=== PATIENT | female | born 1995 | race African-American/Black ===

== ENCOUNTER 2018-03-04 10:33 | Inpatient (IN) ==
[2018-03-04] MEDS ORDERED: CITRIC ACID/SODIUM CITRATE 30 ML UDCUP PO ONE (12:14)
[2018-03-04] MEDS: LACTATED RINGERS 1,000 ML IV SCH ×2 (12:15→13:19)
[2018-03-04] MEDS ORDERED: OXYTOCIN 10 UNIT/ML VIAL IM ONE (12:17)
[2018-03-04] MEDS ORDERED: OXYTOCIN/LR 30 UNIT/1,000 ML BAG IV ONE (12:17)
[2018-03-04 12:53] LABS: Basophils % 0.2 % (0.0-0.8); Eosinophils % 0.3 % (0.00-10.9); Hematocrit 29.4 VOL% (35.7-47.0); Hemoglobin 9.7 GM/DL (12.0-16.0); Immature Granulocytes % 0.8 %; Immature Granulocytes Absolute 0.08 #; Lymphocytes # 2.2 10*3/uL (1.4-4.0); Lymphocytes % 22.1 % (21.3-54.2); Mean Corpuscular Hemoglobin 30 PG (27-34); Mean Corpuscular Volume 91.9 FL (87-102); Mean Platelet Volume 11.1 FL (9.6-12.0); Monocytes # 0.8 10*3/uL (0.11-0.8); Monocytes % 7.8 % (1.7-12.7); Neutrophils # 6.8 10*3/uL (1.4-7.4); Neutrophils % 68.8 % (38.7-73.9); Platelet Count 282 T/CUMM (130-400); Red Cell Distribution Width 13.9 % (9.3-17.3)
[2018-03-04 12:58] LABS: Apearance,Urine CLEAR (Clear); Bilirubin,Urine Negative (Negative); Blood, Urine Negative (Negative); Glucose,Urine (UA) Negative (Negative); Ketones,Urine Negative (Negative); Mucus,Urine Occasional /LPF (Occasional); Nitrite,Urine Negative (Negative); Protein,Urine Negative; RBC,Urine 1 /HPF (0-4); Squamous Epithelial Cell,Urine Occasional /HPF (0-10); Urine Color Yellow (Yellow); Urine Specific Gravity 1.004 (1.001-1.035); Urine Urobilinogen < 2.0 EU/DL (0.2-1.0); WBC,Urine <1 /HPF (0-6)
[2018-03-04 13:03] LABS: INR 0.9; PT Patient Result 9.9 SECS; Partial Thromboplastin Time 23.8 SECS (0-40)
[2018-03-04] MEDS ORDERED: FAMOTIDINE 20 MG/2 ML VIAL IV ONE (13:15)
[2018-03-04] MEDS ORDERED: BUPIVACAINE SPINAL 0.75% 2 ML AMP SPINAL ONE (13:26)
[2018-03-04 13:30] LABS: Albumin 2.7 G/DL (3.4-5.0); Calcium 8.4 MG/DL (8.5-10.1); Osmolality,Calculated 275.3 MOS/KG (273-304); Potassium 3.6 MMOL/L (3.5-5.1); Total Protein 6.5 G/DL (6.4-8.3)
[2018-03-04] MEDS ORDERED: PHENYLEPHRINE 1 MG/10 ML SYRINGE IV ONE (14:39)
[2018-03-04] MEDS ORDERED: fentaNYL 100 MCG/2 ML VIAL ONE (14:40)
[2018-03-04] MEDS ORDERED: METOCLOPRAMIDE 10 MG/2 ML VIAL ONE (14:40)
[2018-03-04] MEDS ORDERED: MORPHINE 10 MG/10 ML VIAL ONE (14:40)
[2018-03-04] MEDS ORDERED: ONDANSETRON 4 MG/2 ML VIAL ONE (14:40)
[2018-03-04] MEDS ORDERED: IBUPROFEN 800 MG TABLET PO PRN (14:57)
[2018-03-04] MEDS ORDERED: ONDANSETRON 4 MG/2 ML VIAL IV PRN ×2 (14:57)
[2018-03-04] MEDS ORDERED: OXYTOCIN/LR 20 UNIT/1,000 ML BAG IV ONE (14:57)
[2018-03-04] MEDS ORDERED: diphenhydrAMINE 50 MG/1 ML VIAL IV PRN (14:57)
[2018-03-04] MEDS ORDERED: RHO(D) IMMUNE GLOBULIN 300 MCG SYRINGE IM ONE (14:57)
[2018-03-04] MEDS ORDERED: SIMETHICONE CHEW 80 MG TABLET PO PRN (14:57)
[2018-03-04] MEDS ORDERED: HYDROmorphone 2 MG/1 ML VIAL IV PRN (14:57)
[2018-03-04] MEDS ORDERED: MAGNESIUM HYDROXIDE SUSP 30 ML UDCUP PO PRN (14:57)
[2018-03-04] MEDS ORDERED: hydrOXYzine HCL 25 MG/1 ML VIAL IM PRN (14:57)
[2018-03-04] MEDS ORDERED: ACETAMINOPHEN 325 MG TABLET PO PRN (14:57)
[2018-03-04] MEDS ORDERED: LACTATED RINGERS 1,000 ML IV SCH (15:00)
[2018-03-04] MEDS ORDERED: SODIUM CHLORIDE 0.9% 1,000 ML IV SCH (15:00)
[2018-03-04] MEDS: DOCUSATE SODIUM 100 MG CAPSULE PO SCH (20:37)
[2018-03-04] MEDS: ceFAZolin 1,000 MG in SYRINGE 1 EACH IV SCH (22:04)
[2018-03-05] MEDS: LACTATED RINGERS 1,000 ML IV SCH ×2 (00:04→00:05)
[2018-03-05 05:29] LABS: Basophils % 0.2 % (0.0-0.8); Eosinophils % 0.1 % (0.00-10.9); Hematocrit 26.2 VOL% (35.7-47.0); Immature Granulocytes % 0.6 %; Immature Granulocytes Absolute 0.07 #; Lymphocytes # 1.5 10*3/uL (1.4-4.0); Mean Corpuscular HGB Conc 34.4 GM/DL (32-36); Mean Corpuscular Hemoglobin 31 PG (27-34); Mean Platelet Volume 10.4 FL (9.6-12.0); Monocytes # 0.9 10*3/uL (0.11-0.8); Monocytes % 6.8 % (1.7-12.7); Neutrophils # 10.1 10*3/uL (1.4-7.4); Neutrophils % 80.3 % (38.7-73.9); Platelet Count 219 T/CUMM (130-400); Red Blood Count 2.91 MC/CUMM (3.8-5.5); Red Cell Distribution Width 13.7 % (9.3-17.3); White Blood Count 12.6 T/CUMM (4-12)
[2018-03-05] MEDS: ceFAZolin 1,000 MG in SYRINGE 1 EACH IV SCH (05:39)
[2018-03-05] MEDS: MULTIVITAMIN (PRENATAL) TABLET PO SCH (10:21)
[2018-03-05] MEDS: FERROUS SULFATE 325 MG TABLET PO SCH ×2 (10:21→20:36)
[2018-03-05] MEDS: DOCUSATE SODIUM 100 MG CAPSULE PO SCH ×2 (10:21→20:36)
[2018-03-06 07:46] VITALS: BP 140/78
[2018-03-06] MEDS: DOCUSATE SODIUM 100 MG CAPSULE PO SCH (08:36)
[2018-03-06] MEDS: FERROUS SULFATE 325 MG TABLET PO SCH (08:36)
[2018-03-06] MEDS: MULTIVITAMIN (PRENATAL) TABLET PO SCH (08:36)
== END 2018-03-06 17:45 | disposition home or self-care (01) | DRG 540 ==
LOC: N.LDOUT 10:33 → N.LD 12:14 → N.OB 20:13
PROVIDERS: ADMIT Obstetrics & Gynecology; ATTEND Obstetrics & Gynecology
PROC: LDCSECT (ICD-10-PCS; 2018-03-04 13:30)

== ENCOUNTER 2019-02-28 00:20 | Inpatient (IN) ==
[2019-02-28] MEDS ORDERED: FAMOTIDINE 20 MG/2 ML VIAL IV ONE (00:41)
[2019-02-28] MEDS ORDERED: CITRIC ACID/SODIUM CITRATE 30 ML UDCUP PO ONE (00:41)
[2019-02-28] MEDS ORDERED: hydrALAZINE 20 MG/1 ML VIAL ONE (00:45)
[2019-02-28] MEDS ORDERED: hydrALAZINE 20 MG/1 ML VIAL IV ONE ×2 (00:45→01:05)
[2019-02-28] MEDS ORDERED: OXYTOCIN/LR 30 UNIT/1,000 ML BAG IV ONE (00:56)
[2019-02-28 00:57] LABS: Basophils % 0.2 % (0.0-0.8); Eosinophils % 0.3 % (0.00-10.9); Hematocrit 33.1 VOL% (35.7-47.0); Hemoglobin 10.3 GM/DL (12.0-16.0); Immature Granulocytes % 0.5 %; Immature Granulocytes Absolute 0.04 #; Lymphocytes # 2.4 10*3/uL (1.4-4.0); Lymphocytes % 27.8 % (21.3-54.2); Mean Corpuscular HGB Conc 31.1 GM/DL (32-36); Mean Corpuscular Volume 89.7 FL (87-102); Mean Platelet Volume 11.6 FL (9.6-12.0); Monocytes % 7.4 % (1.7-12.7); Neutrophils % 63.8 % (38.7-73.9); Platelet Count 307 T/CUMM (130-400); Red Blood Count 3.69 MC/CUMM (3.8-5.5); Red Cell Distribution Width 13.5 % (9.3-17.3); White Blood Count 8.7 T/CUMM (4-12)
[2019-02-28] MEDS ORDERED: ceFAZolin 3,000 MG in SYRINGE 1 EACH IV ONE (01:00)
[2019-02-28] MEDS ORDERED: LACTATED RINGERS 1,000 ML IV SCH ×2 (01:00→03:00)
[2019-02-28 01:08] LABS: INR 0.9; PT Patient Result 9.7 SECS; Partial Thromboplastin Time 23.9 SECS (0-40)
[2019-02-28 01:16] LABS: Albumin 3.2 G/DL (3.4-5.0); Bilirubin,Total 0.6 MG/DL (0.2-1.0); Calcium 9.1 MG/DL (8.5-10.1); Osmolality,Calculated 277.3 MOS/KG (273-304); Total Protein 7.5 G/DL (6.4-8.3)
[2019-02-28] MEDS ORDERED: OXYTOCIN 10 UNIT/ML VIAL ONE (01:16)
[2019-02-28] MEDS ORDERED: OXYTOCIN 10 UNIT/ML VIAL IM ONE (01:17)
[2019-02-28 01:22] LABS: Apearance,Urine CLEAR (Clear); Bilirubin,Urine Negative (Negative); Blood, Urine Negative (Negative); Glucose,Urine (UA) Negative (Negative); Ketones,Urine 5 mg/dL (Negative); Nitrite,Urine Negative (Negative); Protein,Urine 30 MG/DL; RBC,Urine <1 /HPF (0-4); Squamous Epithelial Cell,Urine Occasional /HPF (0-10); Urine Color Straw (Yellow); Urine Specific Gravity 1.003 (1.001-1.035); Urine Urobilinogen < 2.0 EU/DL (0.2-1.0); WBC,Urine <1 /HPF (0-6)
[2019-02-28 01:42] LABS: Barbiturates Screen,Urine Negative (Negative); Benzodiazepines Screen,Urine Negative (Negative); Cannabinoid Screen,Urine Negative (Negative); Opiate Screen,Urine Negative (Negative); Phencyclidine Screen,Urine Negative (Negative)
[2019-02-28] MEDS ORDERED: MAGNESIUM SULF RIDER 4 GM in PREMIX 1 EACH IV ONE (02:04)
[2019-02-28 02:07] LABS: Cord Arterial Blood HCO3 17.8 MMOL/L
[2019-02-28 02:11] LABS: Cord Venous Blood HCO3 19.3 MMOL/L; Cord Venous Blood PCO2 49.8 MMHG
[2019-02-28 02:13] LABS: Cord Venous Blood PO2 17.4
[2019-02-28] MEDS ORDERED: MAGNESIUM SULF DRIP 40 GM/1,000 ML ML IV SCH (02:30)
[2019-02-28] MEDS ORDERED: PHENYLEPHRINE 1 MG/10 ML SYRINGE IV ONE (02:35)
[2019-02-28] MEDS ORDERED: fentaNYL 100 MCG/2 ML VIAL ONE (02:36)
[2019-02-28] MEDS ORDERED: MORPHINE 10 MG/10 ML VIAL ONE (02:38)
[2019-02-28] MEDS ORDERED: ACETAMINOPHEN 325 MG TABLET PO PRN (02:47)
[2019-02-28] MEDS ORDERED: IBUPROFEN 800 MG TABLET PO PRN (02:47)
[2019-02-28] MEDS ORDERED: OXYTOCIN/LR 20 UNIT/1,000 ML BAG IV ONE ×2 (02:47→11:14)
[2019-02-28] MEDS ORDERED: ONDANSETRON 4 MG/2 ML VIAL IV PRN (02:47)
[2019-02-28] MEDS ORDERED: RHO(D) IMMUNE GLOBULIN 300 MCG SYRINGE IM ONE (02:47)
[2019-02-28 03:11] LABS: HIV Antigen/Antibody Result Nonreactive (Nonreactive); Hepatitis B Surface Ab Result Negative
[2019-02-28] MEDS ORDERED: diphenhydrAMINE 50 MG/1 ML VIAL IV ONE (03:15)
[2019-02-28 07:49] LABS: Basophils % 0.1 % (0.0-0.8); Hematocrit 31.1 VOL% (35.7-47.0); Hemoglobin 9.6 GM/DL (12.0-16.0); Immature Granulocytes % 0.8 %; Immature Granulocytes Absolute 0.11 #; Lymphocytes # 1.5 10*3/uL (1.4-4.0); Lymphocytes % 10.1 % (21.3-54.2); Mean Corpuscular HGB Conc 30.9 GM/DL (32-36); Mean Corpuscular Volume 90.4 FL (87-102); Mean Platelet Volume 11.1 FL (9.6-12.0); Monocytes % 5.5 % (1.7-12.7); Neutrophils % 83.5 % (38.7-73.9); Platelet Count 270 T/CUMM (130-400); Red Blood Count 3.44 MC/CUMM (3.8-5.5); Red Cell Distribution Width 13.7 % (9.3-17.3); White Blood Count 14.5 T/CUMM (4-12)
[2019-02-28] MEDS: DOCUSATE SODIUM 100 MG CAPSULE PO SCH ×2 (08:57→21:00)
[2019-02-28] MEDS: MULTIVITAMIN (PRENATAL) TABLET PO SCH (08:57)
[2019-02-28] MEDS: ceFAZolin 1,000 MG in SYRINGE 1 EACH IV SCH ×2 (08:57→17:03)
[2019-02-28] MEDS ORDERED: diphenhydrAMINE 50 MG/1 ML VIAL IV PRN (12:39)
[2019-02-28] MEDS ORDERED: SODIUM CHLORIDE 0.9% 100 ML IV ONE (16:59)
[2019-03-01] MEDS: MULTIVITAMIN (PRENATAL) TABLET PO SCH (09:19)
[2019-03-01] MEDS: DOCUSATE SODIUM 100 MG CAPSULE PO SCH ×2 (09:19→21:14)
[2019-03-01] MEDS: MAGNESIUM HYDROXIDE SUSP 30 ML UDCUP PO PRN (09:35)
[2019-03-01] MEDS: SIMETHICONE CHEW 80 MG TABLET PO PRN ×2 (09:35→16:09)
[2019-03-01] MEDS ORDERED: METOCLOPRAMIDE 10 MG/2 ML VIAL IV SCH (16:00)
[2019-03-01] MEDS ORDERED: BISACODYL 10 MG SUPP RECTAL PRN (21:16)
[2019-03-02] MEDS ORDERED: METOCLOPRAMIDE 10 MG/2 ML VIAL IV SCH
[2019-03-02] MEDS: DOCUSATE SODIUM 100 MG CAPSULE PO SCH ×2 (08:55→20:51)
[2019-03-02] MEDS: METOCLOPRAMIDE 10 MG TABLET PO SCH ×2 (08:55→16:39)
[2019-03-02] MEDS: MULTIVITAMIN (PRENATAL) TABLET PO SCH (08:57)
[2019-03-02] MEDS: SIMETHICONE CHEW 80 MG TABLET PO PRN (08:57)
[2019-03-02] MEDS: MAGNESIUM HYDROXIDE SUSP 30 ML UDCUP PO PRN (08:57)
[2019-03-03] MEDS: METOCLOPRAMIDE 10 MG TABLET PO SCH (00:59)
[2019-03-03] MEDS: MULTIVITAMIN (PRENATAL) TABLET PO SCH (08:04)
[2019-03-03] MEDS: SIMETHICONE CHEW 80 MG TABLET PO PRN (08:04)
[2019-03-03] MEDS: DOCUSATE SODIUM 100 MG CAPSULE PO SCH (08:04)
[2019-03-03 09:15] VITALS: BP 147/96
[2019-03-03] MEDS ORDERED: DIPH/TET/ACEL PERT BOOSTER VACCINE 0.5 ML VIAL IM ONE (11:31)
== END 2019-03-03 13:00 | disposition home or self-care (01) | DRG 540 ==
LOC: N.LDOUT 00:20 → N.LD 00:24 → N.OB 03-01 09:30
PROVIDERS: ADMIT Obstetrics & Gynecology; ATTEND Obstetrics & Gynecology
PROC: LDCSECT (ICD-10-PCS; 2019-02-28 01:27)

== ENCOUNTER 2022-12-05 09:54 | Inpatient (IN) ==
[2022-12-05] MEDS ORDERED: NIFEdipine 10 MG CAPSULE PO ONE ×3 (10:54→16:03)
[2022-12-05 11:23] LABS: Basophils % 0.2 % (0.0-0.8); Eosinophils % 0.2 % (0.00-10.9); Hematocrit 32.7 VOL% (35.7-47.0); Hemoglobin 10.8 GM/DL (12.0-16.0); Immature Granulocytes % 0.4 %; Immature Granulocytes Absolute 0.04 #; Lymphocytes # 1.7 10*3/uL (1.4-4.0); Mean Corpuscular Volume 92.9 FL (87-102); Monocytes # 0.7 10*3/uL (0.11-0.8); Neutrophils % 72.2 % (38.7-73.9); Platelet Count 307 T/CUMM (130-400); Red Blood Count 3.52 MC/CUMM (3.8-5.5); White Blood Count 8.98 T/CUMM (4-12)
[2022-12-05 11:37] LABS: INR 0.9; PT Patient Result 10.3 SECS (10.1-12.1); Partial Thromboplastin Time 23.9 SECS (23.7-32.9)
[2022-12-05 11:46] LABS: Albumin 2.9 G/DL (3.4-5.0); Bilirubin,Direct 0.14 MG/DL (0.0-0.20); Bilirubin,Total 0.7 MG/DL (0.20-1.00); Osmolality,Calculated 272.5 MOS/KG (273-304); Potassium 3.4 MMOL/L (3.5-5.1); Total Protein 7.1 G/DL (6.4-8.2); Uric Acid 3.4 MG/DL (2.6-6.0)
[2022-12-05] MEDS ORDERED: ONDANSETRON 4 MG/2 ML VIAL IV ONE (11:47)
[2022-12-05 12:12] LABS: Bacteria,Urine Occasional /HPF (Few); Mucus,Urine Many /LPF (Occasional); RBC,Urine 1 /HPF (0-4); Squamous Epithelial Cell,Urine Occasional /HPF (0-10)
[2022-12-05 12:13] LABS: Bilirubin,Urine Small mg/dL (Negative); Blood, Urine Negative (Negative); Glucose,Urine (UA) Negative (Negative); Ketones,Urine 80 mg/dL (Negative); Nitrite,Urine Positive (Negative); Protein,Urine 30 mg/dL (Negative); Protein/Creatinine Ratio,Urine 0.2 RATIO; Urine Appearance Clear (Clear); Urine Color Amber (Yellow); Urine Specific Gravity > 1.030 (1.001-1.035)
[2022-12-05] MEDS: LACTATED RINGERS 1,000 ML IV SCH (12:44)
[2022-12-05 16:32] LABS: Barbiturates Screen,Urine Negative (Negative); Benzodiazepines Screen,Urine Negative (Negative); Cannabinoid Screen,Urine Negative (Negative); Opiate Screen,Urine Negative (Negative); Phencyclidine Screen,Urine Negative (Negative)
[2022-12-05] MEDS ORDERED: CARBOPROST TROMETHAMINE 250 MCG/ML AMP IM PRN (17:02)
[2022-12-05] MEDS ORDERED: METHYLERGONOVINE 0.2 MG/1 ML AMP IM PRN (17:02)
[2022-12-05] MEDS ORDERED: OXYTOCIN/LR 20 UNIT/1,000 ML BAG IV ONE (17:02)
[2022-12-05] MEDS ORDERED: TRANEXAMIC ACID 1,000 MG in SODIUM CHLORIDE 0.9% 100 ML IV PRN (17:02)
[2022-12-05] MEDS ORDERED: miSOPROStoL 200 MCG TABLET RECTAL PRN (17:02)
[2022-12-06] MEDS ORDERED: ONDANSETRON 4 MG/2 ML VIAL IV PRN ×2 (04:30→10:32)
[2022-12-06] MEDS ORDERED: FAMOTIDINE 20 MG/2 ML VIAL IV ONE (05:30)
[2022-12-06] MEDS ORDERED: ceFAZolin 3,000 MG in SYRINGE 1 EACH IV ONE (05:30)
[2022-12-06] MEDS ORDERED: CITRIC ACID/SODIUM CITRATE 30 ML UDCUP PO ONE (05:30)
[2022-12-06] MEDS ORDERED: OXYTOCIN 10 UNIT/ML VIAL IM ONE (07:10)
[2022-12-06] MEDS ORDERED: OXYTOCIN/LR 30 UNIT/1,000 ML BAG IV ONE (07:12)
[2022-12-06] MEDS ORDERED: ONDANSETRON 4 MG/2 ML VIAL ONE (07:16)
[2022-12-06] MEDS ORDERED: buprenorphine HCL 0.3 MG/ML VIAL ONE (07:17)
[2022-12-06] MEDS: LACTATED RINGERS 1,000 ML IV SCH (07:30)
[2022-12-06] MEDS ORDERED: SODIUM CHLORIDE 0.9% 0 ML IV ONE (08:56)
[2022-12-06] MEDS ORDERED: TRANEXAMIC ACID 1,000 MG/10 ML VIAL ONE (08:56)
[2022-12-06] MEDS ORDERED: miSOPROStoL 200 MCG TABLET ONE (08:56)
[2022-12-06] MEDS ORDERED: METHYLERGONOVINE 0.2 MG/1 ML AMP ONE (08:57)
[2022-12-06] MEDS ORDERED: CARBOPROST TROMETHAMINE 250 MCG/ML AMP IM ONE (08:57)
[2022-12-06] MEDS ORDERED: LIDOCAINE 2% 5 ML VIAL ONE (09:29)
[2022-12-06] MEDS ORDERED: propofoL 200 MG/20 ML VIAL IV ONE (09:29)
[2022-12-06] MEDS ORDERED: MIDAZOLAM 2 MG/2 ML VIAL ONE (09:29)
[2022-12-06] MEDS ORDERED: fentaNYL 100 MCG/2 ML VIAL ONE (09:29)
[2022-12-06] MEDS ORDERED: KETOROLAC 30 MG/1 ML VIAL ONE (09:57)
[2022-12-06] MEDS ORDERED: ACETAMINOPHEN INJ 1,000 MG/100 ML VIAL IV ONE (09:57)
[2022-12-06] MEDS ORDERED: DEXAMETHASONE 4 MG/1 ML VIAL ONE (09:57)
[2022-12-06] MEDS ORDERED: LACTATED RINGERS 1,000 ML IV ONE (10:02)
[2022-12-06] MEDS ORDERED: SEVOFLURANE 1 UNIT/15 MINUTE INH ONE ×2 (10:02→10:27)
[2022-12-06 10:11] LABS: Cord Arterial Blood HCO3 19.8 MMOL/L
[2022-12-06 10:13] LABS: Cord Venous Blood HCO3 20.2 MMOL/L; Cord Venous Blood PCO2 61.6 MMHG; Cord Venous Blood PO2 25.4
[2022-12-06] MEDS ORDERED: SUCCINYLCHOLINE 200 MG/10 ML VIAL ONE (10:14)
[2022-12-06 10:24] LABS: Bacteria,Urine Occasional /HPF (Few); Bilirubin,Urine Small mg/dL (Negative); Blood, Urine Negative (Negative); Glucose,Urine (UA) Negative (Negative); Ketones,Urine 80 mg/dL (Negative); Mucus,Urine Occasional /LPF (Occasional); Nitrite,Urine Negative (Negative); Protein,Urine 30 mg/dL (Negative); RBC,Urine <1 /HPF (0-4); Urine Appearance Clear (Clear); Urine Color Amber (Yellow); Urine Specific Gravity > 1.030 (1.001-1.035)
[2022-12-06] MEDS ORDERED: OXYTOCIN/LR 20 UNIT/1,000 ML BAG IV ONE (10:32)
[2022-12-06] MEDS ORDERED: RHO(D) IMMUNE GLOBULIN 300 MCG SYRINGE IM ONE (10:32)
[2022-12-06] MEDS ORDERED: ACETAMINOPHEN 325 MG TABLET PO PRN (10:32)
[2022-12-06] MEDS ORDERED: LACTATED RINGERS 1,000 ML IV SCH (11:00)
[2022-12-06] MEDS: HYDROmorphone 1 MG/1 ML SYRINGE IV PRN ×2 (11:18→13:19)
[2022-12-06] MEDS ORDERED: NIFEdipine 10 MG CAPSULE PO ONE (12:33)
[2022-12-06] MEDS: KETOROLAC 30 MG/1 ML VIAL IV SCH ×2 (15:56→21:49)
[2022-12-06 17:58] LABS: Basophils % 0.1 % (0.0-0.8); Hematocrit 35.2 VOL% (35.7-47.0); Hemoglobin 11.8 GM/DL (12.0-16.0); Immature Granulocytes % 0.5 %; Immature Granulocytes Absolute 0.09 #; Lymphocytes # 0.9 10*3/uL (1.4-4.0); Lymphocytes % 5.3 % (21.3-54.2); Mean Corpuscular HGB Conc 33.5 GM/DL (32-36); Mean Corpuscular Volume 91.4 FL (87-102); Mean Platelet Volume 10.3 FL (9.6-12.0); Monocytes # 0.3 10*3/uL (0.11-0.8); Monocytes % 1.9 % (1.7-12.7); Neutrophils % 92.2 % (38.7-73.9); Platelet Count 299 T/CUMM (130-400); Red Blood Count 3.85 MC/CUMM (3.8-5.5); Red Cell Distribution Width 12.7 % (9.3-17.3); White Blood Count 16.42 T/CUMM (4-12)
[2022-12-06] MEDS: ACETAMINOPHEN 500 MG TABLET PO SCH ×2 (18:25→21:49)
[2022-12-06 21:13] LABS: Lymphocytes 3 % (20-55); Platelet Estimate Normal; Total Cells Counted 100
[2022-12-06] MEDS: DOCUSATE SODIUM 100 MG CAPSULE PO SCH (21:42)
[2022-12-06] MEDS: POTASSIUM CHLORIDE 20 MEQ TABLET PO PRN ×2 (21:42→23:47)
[2022-12-07] MEDS: POTASSIUM CHLORIDE 20 MEQ TABLET PO PRN (01:46)
[2022-12-07] MEDS: ACETAMINOPHEN 500 MG TABLET PO SCH (04:54)
[2022-12-07] MEDS: KETOROLAC 30 MG/1 ML VIAL IV SCH (04:59)
[2022-12-07 07:51] LABS: Basophils % 0.1 % (0.0-0.8); Hematocrit 31.2 VOL% (35.7-47.0); Hemoglobin 10.7 GM/DL (12.0-16.0); Immature Granulocytes % 0.5 %; Immature Granulocytes Absolute 0.08 #; Lymphocytes % 13.1 % (21.3-54.2); Mean Corpuscular HGB Conc 34.3 GM/DL (32-36); Mean Corpuscular Volume 92.3 FL (87-102); Mean Platelet Volume 10.4 FL (9.6-12.0); Monocytes # 1.4 10*3/uL (0.11-0.8); Neutrophils % 77.3 % (38.7-73.9); Platelet Count 287 T/CUMM (130-400); Red Blood Count 3.38 MC/CUMM (3.8-5.5); Red Cell Distribution Width 12.7 % (9.3-17.3); White Blood Count 15.06 T/CUMM (4-12)
[2022-12-07] MEDS ORDERED: traZODone 50 MG TABLET PO PRN (08:19)
[2022-12-07] MEDS: MAGNESIUM HYDROXIDE SUSP 30 ML UDCUP PO PRN ×2 (08:29→21:48)
[2022-12-07] MEDS: DOCUSATE SODIUM 100 MG CAPSULE PO SCH ×2 (08:30→21:48)
[2022-12-07] MEDS: SIMETHICONE CHEW 80 MG TABLET PO PRN ×2 (08:31→21:48)
[2022-12-07] MEDS: MULTIVITAMIN (PRENATAL) TABLET PO SCH (08:31)
[2022-12-07] MEDS: SERTRALINE 50 MG TABLET PO SCH (08:31)
[2022-12-07] MEDS ORDERED: SERTRALINE 50 MG TABLET PO SCH (09:00)
[2022-12-08] MEDS: DOCUSATE SODIUM 100 MG CAPSULE PO SCH ×2 (08:45→21:13)
[2022-12-08] MEDS: MULTIVITAMIN (PRENATAL) TABLET PO SCH (08:45)
[2022-12-08] MEDS: SERTRALINE 50 MG TABLET PO SCH (08:45)
[2022-12-08] MEDS: IBUPROFEN 800 MG TABLET PO PRN (21:19)
[2022-12-09] MEDS ORDERED: INFLUENZA VIRUS VACCINE 0.5 ML SYRINGE IM ONE ×2 (08:00→09:00)
[2022-12-09] MEDS: SERTRALINE 50 MG TABLET PO SCH (08:53)
[2022-12-09] MEDS: DOCUSATE SODIUM 100 MG CAPSULE PO SCH (08:53)
[2022-12-09] MEDS: MULTIVITAMIN (PRENATAL) TABLET PO SCH (08:53)
[2022-12-09 11:45] VITALS: BP 134/73
[2022-12-09] MEDS: IBUPROFEN 800 MG TABLET PO PRN (12:17)
== END 2022-12-09 15:30 | disposition home or self-care (01) | DRG 539 ==
LOC: N.LD 09:54 → N.LDOUT 09:54 → N.LD 09:59 → N.OB 12-06 13:54
PROVIDERS: ADMIT Obstetrics & Gynecology; ATTEND Obstetrics & Gynecology